=== PATIENT | male | born 1985 | race Caucasian/White ===

== ENCOUNTER 2025-03-02 06:24 | Inpatient (IN) | payer OTHER, SELFPAY ==
[2025-03-02] VITALS (9 sets, daily range): BP systolic 164–192; BP diastolic 96–113; BMI 36.4
[2025-03-02] MEDS: VALIUM INJECTION 10 MG IV (03:18)
[2025-03-02] MEDS: ZOFRAN 4 MG IV ×2 (03:18→04:04)
[2025-03-02] MEDS: PROTONIX IV 80 MG IV (03:18)
[2025-03-02] MEDS: PROTONIX 100 IV (03:19)
[2025-03-02 03:26] LABS: Hematocrit 40.7 % (39.0-52.0); Hemoglobin 15.3 g/dL (13.0-18.0); Mean Corp Hgb Conc. 37.6 g/dL (33.0-37.0); Mean Corpuscular Volume 83.6 fL (80.0-94.0); Platelet Count 274 10^3/uL (130-400); Red Cell Dist. Width 11.4 % (11.5-14.5)
--- NOTE | 2025-03-02 03:31 | ED.GENMED ---
Addendum entered and electronically signed by Matthew Martinez DO 03/02/25 22:21:
Late entry
around 7 AM change of shift on 03/02 nurses asked me to reevaluate the patient, patient states he wanted to go home, and not be admitted he states he would stay first with his IV fluids which have been infusing reviewed with the patient he states he
is not interested in rehab, clear mental status no seizures not intoxicated, when asked him why he states he had a bad experience on the floor in a previous admission he does not have insurance and he is concerned about his bill potentially, I
expressed to him my belief that he would benefit from admission for supportive care electrolyte replacement, he was adamant that he wanted to go home, expressed to him that we will be leaving AGAINST MEDICAL ADVICE, again he was willing to stay for
IV fluids electrolyte replacement which I think is reasonable considering his abnormal potassium and magnesium potential for cardiac arrhythmia
Original Note:
History of Present Illness
General
Chief Complaint: Withdrawal Symptoms
Source: patient and records
Exam Limitations: none
Time Seen by Provider: 03/02/25 02:46
Nursing documentation reviewed up to this point in time: agreed with
History of Present Illness
History of Present Illness:
40-year-old male works for [employer] binge drinker dry for about 4 years relapsed 3 to 4 days ago last drank he states about 20 hours ago half 07/28, comes in shaky, vomiting black-reddish material never had seizures, though has had alcohol
withdrawal, has been to rehab before not interested now he says
Past History
Past History
ED Past Medical History: HTN, Psychiatric (Depression, anxiety, PTSD) and Other (Alcohol abuse/binge drinking; obesity, prediabetes)
ED Past Surgical History: None
Patient has exhibited threatening behavior?: No
Social History
Tobacco: Non-smoker
Alcohol: Binge drinker
Drug: None
Personal:
Living: alone
Employment: Employed
Family History
Family History: Other (Noncontributory)
Review of Systems
Review of Systems
All Other Systems: Not applicable
Constitutional: Denies fever or fatigue
EENT: Reports no symptoms
Respiratory: Denies cough
ABD/GI: Reports nausea and vomiting
Psychiatric: Reports anxiety
Phy Exam
Physical Exam
Physical Exam:
Physical Exam
General: Ill-appearing male tremulous
Neck: Dry lip
Heart: Tachycardic
Lungs: no acute respiratory distress. clear bilaterally
Abdomen: Epigastric tenderness, rectal Brown guaiac positive stool
Neuro: alert and oriented. Tremulous
Skin: no rash
Psychiatric: Anxious agitated
Extremities: no edema.
Scores
Withdrawal Assessment of Alcohol
Withdrawal Assessment Completed?: Yes
Nausea and Vomiting: Constant nausea, frequent dry heaves and vomiting
Tactile Disturbances: Mild itching, pins and needles, burning or numbness
Tremor: Moderate, with patient's arms extended
Auditory Disturbances: Very mild harshness or ability to fighten
Paroxysmal Sweats: Beads of sweat obvious on forehead
Visual Disturbances: Very mild sensitivity
Anxiety: Moderately anxious, or guarded, so anxiety is inferred
Headache, Fullness in Head: Very mild
Agitation: Moderately fidgety and restless
Orientation and clouding of sensorium: Oriented and can do serial additions
Total CIWA Score: 28
Alcohol Withdrawal Medication Recommendation: Equal to MSAS >11. Lorazepam 2-4mg IV NOW and re-assess q1hr
Course
Orders/Labs/Results
Orders:
Orders
03/02/25 03:08
CBC/With Diff [Complete Blood Count/With Diff] Urgent
Comprehensive Metabolic Panel Urgent
Lipase Urgent
Magnesium Urgent
Comment: ADD ON
Manual Differential Urgent
Comment: ADD ON
03/02/25 03:11
Cardiac Monitoring- Treatment ONCE
Ondansetron Injectable [Zofran] 4 mg IV NOW STA
Pantoprazole 80 mg/100 ml Nss [Protonix] 80 mg in 100 ml IV NOW
Pantoprazole [Protonix IV] 80 mg IV NOW STA
diazePAM [Valium Injection] 10 mg IV NOW STA
03/02/25 03:12
Electrocardiogram (*1) Stat
Reason for Study: Other
Other Reason for Exam: GI Bleed
EKG- Treatment ONCE
IV Insert/Care/Rem.- Treatment PRN
Ondansetron Injectable [Zofran] 4 mg IV NOW STA
CR Chest Portable - 1 View Urgent
Comment:
Reason For Exam: vomitin
Reason Study Needs to be Portable: Patient Unstable
03/02/25 03:13
Add On- LAB Urgent
Tests Added?: magnesium
0.9% Sodium Chloride 1000 ml [Nss] 1,000 ml Mvi, Adult [Multivitamin] 10 ml Thiamine Injection 100 mg Magnesium Sulfate 2 meq IV 200 mls/hr
0.9% Sodium Chloride 1000 ml [Nss] 1,000 ml IV BOLUS
03/02/25 03:33
Type+Screen Urgent
PTT Urgent
Prothrombin Time Urgent
03/02/25 03:35
Alcohol Urgent
03/02/25 03:52
Magnesium Sulfate 2 Gram/50 ml [Magnesium Sulfate] 2 gram in 50 ml IV NOW
Potassium Chloride [KCl] 40 meq 0.9% Sodium Chloride 250 ml [Nss] 250 ml IV NOW
Abnormal Lab Results
03/02/25
03:08
WBC 23.4 H 10^3/uL
(4.8-10.8)
MCH 31.4 H pg
(27.0-31.0)
MCHC 37.6 H g/dL
(33.0-37.0)
RDW 11.4 L %
(11.5-14.5)
Sodium 128 L mmol/L
(135-145)
Potassium 3.4 L mmol/L
(3.5-5.1)
Chloride 84 L mmol/L
(98-107)
Glucose 185 H mg/dl
(70-99)
Magnesium 0.7 L* mg/dl
(1.6-2.3)
Total Bilirubin 1.9 H mg/dl
(0.2-1.3)
03/02/25 03:08
03/02/25 03:08
Vital Signs
Initial and Last Documented VS:
Initial Vital Signs
Temp Pulse Resp BP Pulse Ox
98.4 F 148 26 164/106 97
03/02/25 02:15 03/02/25 02:15 03/02/25 02:15 03/02/25 02:15 03/02/25 02:15
Last Documented Vital Signs
Temp Pulse Resp BP Pulse Ox
98.4 F 116 9 185/108 97
03/02/25 02:15 03/02/25 03:04 03/02/25 03:04 03/02/25 03:03 03/02/25 03:31
MDM/Problems Addressed
Differential Diagnosis Includes:
Gastritis duodenitis pancreatitis varices, alcohol withdrawal DTs
MDM/Problems Addressed:
Alcohol withdrawal gastritis vomiting
Chronic conditions affecting care:
Alcohol
Chronic conditions affecting care: HTN
Acute Exacerbation and/or Progression of Chronic Illness: HTN
*Radiology
Radiology exam reviewed: preliminary read by ED provider
*Pulse Oximetry
SaO2: 97
Patient hypoxic: no
*EKG
Interpreted by ED Provider?: Yes
Interpretation: abnormal
Comparison EKG: no comparison EKG present
Heart Rate: 117
Rate: tachycardiac
Ischemia: non-specific ST changes
*Accounting Manager Cpa Interpretation
Rate: tachycardiac
Interpretation: abnormal
Heart Rate: 118
Rhythm: sinus
*Critical Care Note
Total Time (30-74mins, 75-104mins- exclusive of procedures): 33
Data Reviewed
Review of Other/Old Records Reveals: Labs and Discharge Summary
Source: patient
Update Note
Update Note:
Update patient binge drinker looks to be in alcohol withdrawal now likely with gastritis or upper GI bleed rectal is heme positive brown stool, started on benzodiazepines PPI, will be admitted
Update prior records briefly reviewed similar presentation a few years ago with alcohol withdrawal hemorrhagic gastritis
Lites are noted will replete
ED Attending Note
-
Portions of this chart may have been created with voice recognition software.� Occasional wrong word or��sound alike� substitutions may have occurred due to the inherent limitations of voice recognition software.
Discharge Plan
Departure
Patient Disposition: Admit
Date of Disposition: 03/02/25
Time of Disposition: 04:23
Admit to: ICU
Presentation/result/management discussed w/ accepting MD/DO: Hospitalist
Condition: Fair
Discharge Problem:
Alcohol withdrawal, Acute alcoholic gastritis with hemorrhage, Hyponatremia, Hypokalemia, Hypomagnesemia
Prescriptions:
No Action
lisinopril 20 MG tablet
20 mg PO DAILY Qty: 90 0RF
amlodipine 10 MG tablet
10 mg PO DAILY Qty: 90 0RF
thiamine HCl (vitamin B1) 100 mg Tablet
100 mg PO BID Qty: 60 0RF
folic acid 1 mg Tablet
1 mg PO DAILY Qty: 30 0RF
pantoprazole 40 MG tablet,delayed release (DR/EC)
40 mg PO BID Qty: 120 0RF
phenobarbital 32.4 mg tablet
32.4 mg PO BID 3 Days Qty: 6 0RF
Referrals:
UNKNOWN - PT DOES,NOT KNOW [Family Provider]
Interventions
Interventions:
*Risk Screen - Suicide Last Done: 03/02/25 02:15
*Neglect/Abuse Screening Last Done: 03/02/25 02:15
ED- Neurological Assessment Last Done: 03/02/25 03:13
ED-Psychological Assessment Last Done: 03/02/25 03:13
Discharge Date and Time
Print Language: YEMENI
[2025-03-02 03:47] LABS: AST (SGOT) 40 U/L (17-59); Albumin 4.6 g/dl (3.5-5.0); Alkaline Phosphatase 68 U/L (38-126); Blood Urea Nitrogen 19 mg/dl (9-20); Calcium 9.1 mg/dl (8.4-10.2); Carbon Dioxide 22 mmol/L (22-30); Chloride 84 mmol/L (98-107); Estimated Creatinine Clearance 124 ml/min; Glucose 185 mg/dl (70-99); Lipase 136 U/L (23-300); Magnesium 0.7 mg/dl (1.6-2.3); Potassium 3.4 mmol/L (3.5-5.1); Sodium 128 mmol/L (135-145); Total Protein 7.6 g/dl (6.3-8.2); eGFR > 60.00
[2025-03-02 03:58] LABS: APTT 25.2 Sec (23.4-35.0); INR 1.01; PT 13.6 Sec (11.4-14.6)
[2025-03-02] MEDS: MAGNESIUM SULFATE 50 IV (04:04)
[2025-03-02] MEDS: NSS 1000 IV (04:04)
[2025-03-02 04:10] LABS: ALT (SGPT) 43 U/L (0-50)
[2025-03-02 04:40] LABS: Absolute Neutrophils -Man Diff 21.7 10^3/uL (1.4-6.5)
[2025-03-02 04:41] LABS: Anisocytosis 1+; Normal RBC Morphology No; Platelets Checked Yes; Total Cells Counted 100
[2025-03-02] MEDS: MULTIVITAMIN 1011.4926 MEQ IV (05:26)
[2025-03-02] MEDS: MULTIVITAMIN 1011.4926 ML IV (05:26)
[2025-03-02] MEDS: KCL 270 MEQ IV (05:26)
[2025-03-02] MEDS: MULTIVITAMIN 1011.4926 MG IV (05:26)
--- NOTE | 2025-03-02 11:18 | W.DCSUMMARY ---
Discharge Summary
Discharge Data
Date of Admission: 03/02/25
Date of Discharge: 03/02/25
-
Pending Results: No
Hospital Course
Left AMA
40-year-old male with past medical history of hypertension depression anxiety PTSD alcohol use disorder/withdrawal obesity and prediabetes who presents alcohol withdrawal, symptoms of shakiness of vomiting black-reddish material.
While in the ER was found to have a hemoglobin of 15 hemodynamically stable. BMP with a white blood cell count of 128, potassium 3.4, stable 0.7 along with a total bili of 1.9. Chest x-ray without acute findings.
He tells me that his mother is aware that he is in the hospital. This is his first time drinking and 4-1/2 years. 4 and half years ago he was admitted to [facility] for severe alcohol withdrawal without seizures as he was going through a
nasty divorce.
He tells me he is not sure why he started drinking again. However he states he has drink around 1500 cc of hard liquor over the last 4 days. Has been eating ham sandwiches crackers ice cream. 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
himself way back to teaching.
At the end of my examination he told me that he is not being admitted and that he is going to complete this banana bag and go home. I informed him that I was in his room admitting him. He states that he already spoke with the ER physician about
leaving AGAINST MEDICAL ADVICE. However there is no documentation of this. Though there was an order placed at 7:11 AM by the ED physician Dr. Martinez for disposition: AGAINST MEDICAL ADVICE. ED provider did not fill out AMA paperwork. I reviewed
capacity/competency.
He is able to fully understand and verbalize back to me that leaving AGAINST MEDICAL ADVICE could put himself and others in danger especially as he is a [employer]. He could suffer from worsening bouts of alcohol withdrawal, developed delirium
tremens and seizures could cause respiratory distress cardiac arrest. Can have a fall develop a severe brain bleed that could render him with life-sustaining disabilities. Additionally, as he is a [employer] or he does drive a car frequently and
driving under the influence or even with alcohol withdrawal that could lead to seizures could put other drivers at risk. He verbalized understanding. States that he does not currently have his car and will be walking home. He states that he feels
better than he came in and has not felt this good in a long time however he is tachycardic with tremors without any evidence for delirium tremens/anxiety or agitation
Discharge Plan
-
Referrals:
UNKNOWN - PT DOES,NOT KNOW [Family Provider]
Prescriptions:
No Action
No Current Medications
0
Discharge Date and Time
Print Language: FRENCH
--- NOTE | 2025-03-02 11:46 | CM ---
CM reviewed chart and met with pt bedside in ED. Lives with his parents, independent at baseline. Declining admission and will be discharged after IV fluid completes. Family will transport home. Declines [facility].
--- NOTE | 2025-03-02 19:00 | HPS.HSE ---
Family Physician
-
Family Physician: NOT KNOW UNKNOWN - PT DOES
Chief Complaint
-
N/V
History of Present Illness
Late Entry: Patient seen and examined this AM at 6:00.
Patient is a 40y M with PMH significant for alcohol use disorder who presents to ED complaining of N/V, sweats and shaking. Patient reports prior h/o alcohol use and notes that he has been sober x many years. He started drinking again about 4-5
days ago. He cannot identify any specific trigger to his relapse. Patient states that he has been drinking 1/2 - 1 bottle of rum daily in that time frame. His last drink was Monday AM. Patient reports epigastric discomfort, heartburn and N/V
of 'black' appearing emesis. He states that he 'throws up all the time' - even when not drinking. He has frequent heartburn symptoms.
At the time of my examination patient is diaphoretic and tremulous.
Medical History
Past Medical History
Past Medical History: Reports Other
Additional Past Medical History:
Alcohol Use Disorder
Past Surgical History: Reports None
Social History
Tobacco: Non-smoker
Alcohol: Chronic Alcoholic (Sober x years with recent relapse as described in HPI.)
Drug: Marijuana (Occasional THC.)
Personal:
Family History
Family History: Not pertinent
Allergies / Home Medications
Allergies reflects when Allergies were last updated in [facility] [employer].
Home Medications with original date entered in [facility] [employer]
Allergy/Medication List:
Allergies
Allergy/AdvReac Type Severity Reaction Status Date / Time
Fish Containing Products Allergy Mild [id number]-[id number] Verified 03/02/25 02:18
NOWN
Home Medications
No Meds [No Current Medications] 03/02/25
Review of Systems
-
History Source: Patient
A 12 point ROS was completed and negative except as noted: Yes
Constitutional: Reports Fatigue and Chills; Denies Fever
EENT: Denies Sore Throat
Respiratory: Denies Cough or Trouble Breathing
Cardiac: Denies Chest Pain or Palpitations
Abdomen/GI: Reports Abdominal Pain, Nausea and Vomiting; Denies Diarrhea or Constipated
: Denies Flank Pain
Musculoskeletal: Denies Joint Pain or Edema
Neurological: Denies Dizzy or Headache
Psych: Reports Anxiety
Physical Exam
Vital Signs
Vital Signs
Temp Pulse Resp BP Pulse Ox
98.4 F 106 14 180/109 98
03/02/25 02:15 03/02/25 10:30 03/02/25 10:30 03/02/25 10:00 03/02/25 10:30
Physical Exam
General: Other (Diaphoretic, tremulous 40y M.)
HEENT: Other (Dry MM. Poor dentition.)
Respiratory: Clear; No Wheezes, Rales or Rhonchi
Cardiac: S1/S2 and Tachycardia; No Murmur
GI: Soft, Non Tender, Non Distended and Normal Bowel Sounds
Musculoskeletal: No Clubbing, No Cyanosis and No Edema
Neuro: AO x 3 and Tremors
Laboratory Results
-
03/02/25 03:08
03/02/25 03:08
Laboratory Results
PT 13.6 Sec (11.4-14.6) 03/02/25 03:33
INR 1.01 03/02/25 03:33
APTT 25.2 Sec (23.4-35.0) 03/02/25 03:33
Total Bilirubin 1.9 mg/dl (0.2-1.3) H 03/02/25 03:08
AST 40 U/L (17-59) 03/02/25 03:08
ALT 43 U/L (0-50) 03/02/25 03:08
Alkaline Phosphatase 68 U/L (38-126) 03/02/25 03:08
Lipase 136 U/L (23-300) 03/02/25 03:08
Impression/Plan
-
A/P: Patient is a 40y M with PMH significant for alcohol use disorder who presents to ED complaining of N/V of black emesis, sweating and tremors.
Alcohol Withdrawal Syndrome
Alcohol Use Disorder
- Admit for further evaluation and treatment.
- Phenobarb taper given significant symptoms at present.
- Thiamine, MVI, etc.
- IVF support.
- MSAS / Ativan PRN.
- Follow for clinical improvement.
- Encourage alcohol cessation.
Acute on Chronic Gastritis
GERD
- Patient reports frequent heartburn and notes that he has emesis 'all the time'.
- Reported black emesis prior to ED. Hgb stable.
- IV PPI.
- GI evaluation for additional recommendations and possible endoscopic examination.
Elevated BP
- No formal diagnosis of hypertension.
- Likely acute elevation in the setting of acute withdrawal.
- Follow for improvement with treatment as noted above.
- Consider initiation of antihypertensive regimen if BP remains elevated.
DVT Prophylaxis: SCDs
Code Status: Full
== END 2025-03-02 12:02 | disposition left against medical advice (07) | DRG 894 ==
LOC: ED 06:24
PROVIDERS: ADMITTING PHYSICIAN Hospitalist; ATTENDING PHYSICIAN Hospitalist; EMERGENCY PHYSICIAN Emergency Medicine
DX: F10.239 Alcohol dependence with withdrawal, unspecified (principal); Z53.29 Procedure and treatment not carried out because of patient's decision for other reasons; E87.1 Hypo-osmolality and hyponatremia; K29.00 Acute gastritis without bleeding; K21.9 Gastro-esophageal reflux disease without esophagitis; R73.03 Prediabetes; E83.42 Hypomagnesemia; E87.6 Hypokalemia; E66.9 Obesity, unspecified; F32.A Depression, unspecified; F41.9 Anxiety disorder, unspecified; F43.10 Post-traumatic stress disorder, unspecified; I10 Essential (primary) hypertension; K29.50 Unspecified chronic gastritis without bleeding
CPT/HCPCS: 71045; 80053; 82077; 83690; 83735; 85025; 85610; 85730; 86850; 86900; 86901; 93005